=== PATIENT | male | born 1975 | race Caucasian/White ===

== ENCOUNTER 2018-04-22 08:36 | Emergency (ER) | payer MEDICAID ==
[2018-04-22 08:41] VITALS: BP 134/86
--- NOTE | 2018-04-22 09:00 | EDPHY ---
H & P Stated Complaint: ? shingles r chest Time Seen by Provider: 04/22/18 08:55 HPI/ROS: HPI: This is a 43-year-old male who presents with Chief Complaint: ? shingles right chest Location: Right side of chest Quality: Rash Duration: Last night Signs and Symptoms: no fever, no nausea, no vomiting, no diarrhea, no urinary symptoms, no chest pain, no shortness of breath, no wheezing, no cough, no sore throat, no neck stiffness, no joint pain, no swollen glands, no ear pain, no rash, no vision changes Timing: Gradually worsening Severity: 02/07 Context: Patient reports for the last 2 days he has felt aching sensation in his back and neck area. He reports that he is dealing with some"cervical pain that is being followed by his primary care provider and did not think anything of it" until last night when he was getting out of the shower and his partner noticed a rash on his upper back. He reports this morning it is "burning" and moderately painful. He denies any fever, chills, fatigue, vision changes, joint pain, discharge. Modifying Factors: None Comment: ROS: A comprehensive 10 system review of systems is otherwise negative aside from elements mentioned in the history of present illness. MEDICAL/SURGICAL/SOCIAL HISTORY: Medical history: Generally healthy. Does not take any regular medications. Surgical history: Neck surgery 1999 Social history: Current every day smoker. Family history noncontributory. CONSTITUTIONAL: Extremely well-appearing middle-aged white male, awake and alert, no obvious distress HEENT: Atraumatic and normocephalic, PERRL, EOMI. Nares patent; no rhinorrhea; no nasal mucosal edema. Tympanic membranes clear. Oropharynx clear, no exudate and moist pink mucosa. Airway patent. No lymphadenopathy. No meningismus. Cardiovascular: Normal S1/S2, regular rate, regular rhythm, without murmur rub or gallop. PULMONARY/CHEST: Symmetrical and nontender. Clear to auscultation bilaterally. Good air movement. No accessory muscle usage. ABDOMEN: Soft, nondistended, nontender, no rebound, no guarding, no peritoneal signs, no masses or organomegaly. No CVAT. EXTREMITIES: 2/2 pulses, strength 5/5, no deformities, no clubbing, no cyanosis or edema. NEUROLOGICAL: no focal neuro deficits. GCS 15. SKIN: Warm and dry, T1/T2 maculopapular rash with several vesicles sparing the midline on the right-side extending to the scapula region. Good capillary refill. Source: Patient Exam Limitations: No limitations - Personal History Current Tetanus Diphtheria and Acellular Pertussis (TDAP): Yes - Medical/Surgical History Hx Asthma: No Hx Chronic Respiratory Disease: No Hx Diabetes: No Hx Cardiac Disease: No Hx Renal Disease: No Hx Cirrhosis: No Hx Alcoholism: No Hx HIV/AIDS: No Hx Splenectomy or Spleen Trauma: No Other PMH: neck surgery 2009 - Social History Smoking Status: Current every day smoker Constitutional: Initial Vital Signs Temperature (C) 37 C 04/22/18 08:39 Heart Rate 86 04/22/18 08:39 Respiratory Rate 17 04/22/18 08:39 Blood Pressure 134/86 H 04/22/18 08:39 O2 Sat (%) 96 04/22/18 08:39 O2 Delivery Mode Room Air Allergies/Adverse Reactions: No Known Allergies Allergy (Verified 04/22/18 08:38) Home Medications: Medication Instructions Recorded Acyclovir [Zovirax] 800 mg PO 5XD #35 tab 04/22/18 Gabapentin [Neurontin 300 MG (*)] 300 mg PO HS #10 cap 04/22/18 Medical Decision Making ED Course/Re-evaluation: Vital signs reviewed and stable. No systemic signs. Patient has no ocular involvement no signs of cellulitis. Given prescription for Acyclovir and Gabapentin. Patient politely declined any opiate or narcotic pain medications. Advised local wound care. This patient was seen under the supervision of my secondary supervising physician. I evaluated care for this patient independently. Discussed this patient with Dr. Beauchamp. Differential Diagnosis: Differential diagnosis includes but is not limited to cellulitis, shingles, varicella, small pox, bullous pemphigoid,dermatitis herpetiformis, erythema multiform. Departure - Departure Disposition: Home, Routine, Self-Care Clinical Impression: Shingles Qualifiers: Herpes zoster complications: without complications Qualified Code(s): B02.9 - Zoster without complications Condition: Good Instructions: Shingles (ED) Additional Instructions: Take Benadryl 25-50 mg every 4-6 hours as needed for itchiness. Take Gabapentin at bedtime for neuropathic pain. Take Acyclovir 5 times a day for the next 7 days. Take ibuprofen 608 mg every 6-8 hours as needed for pain. Wash the rash daily with soap and water; pat dry; keep covered with clean sterile dressing until fully healed. Return to the ER immediately if you experience redness, red streaks, have fevers /chills, flu like symptoms, limited range of motion, or any other symptoms that concern you. Referrals: Kristal Rueda, DO [Primary Care Provider] - 5-7 days, if not improved Prescriptions: Acyclovir [Zovirax] 800 mg PO 5XD #35 tab Gabapentin [Neurontin 300 MG (*)] 300 mg PO HS #10 cap
== END 2018-04-22 09:07 | disposition home or self-care (01) ==
DX: B02.9 Zoster without complications (principal)